=== PATIENT | male | born 1950 | race Caucasian/White ===

== ENCOUNTER 2016-12-01 22:23 | Emergency (ER) | payer MEDICARE, OTHER ==
[2016-12-01] MEDS ORDERED: SODIUM CHLORIDE 0.9% 1,000 ML IV ONE (23:25)
[2016-12-02] MEDS ORDERED: chlordiazePOXIDE 25 MG CAPSULE PO STA (01:48)
[2016-12-02] MEDS ORDERED: chlordiazePOXIDE 25 MG CAPSULE PO ONE (01:50)
== END 2016-12-02 02:37 | disposition home or self-care (01) ==
DX: J06.9 Acute upper respiratory infection, unspecified (principal); R00.0 Tachycardia, unspecified; F10.188 Alcohol abuse with other alcohol-induced disorder; T51.0X1A Toxic effect of ethanol, accidental (unintentional), initial encounter; Y92.9 Unspecified place or not applicable; G25.2 Other specified forms of tremor; I10 Essential (primary) hypertension; G47.30 Sleep apnea, unspecified; K21.9 Gastro-esophageal reflux disease without esophagitis; H91.90 Unspecified hearing loss, unspecified ear; G89.29 Other chronic pain; M54.9 Dorsalgia, unspecified; Z79.891 Long term (current) use of opiate analgesic; Z79.899 Other long term (current) drug therapy
CPT/HCPCS: 36415; 71020; 80053; 83690; 83880; 84443; 84484; 85025; 85379; 85610; 85730; 93005; 93010; 99283; 99284; A9270

== ENCOUNTER 2017-01-12 14:59 | Emergency (ER) | payer MEDICARE, OTHER ==
--- NOTE | 2017-01-12 16:01 | ED Physician Documentation ---
History of Present Illness - Stated complaint Stated Complaint: LEFT ANKLE INJ - Chief complaint Chief Complaint: Ext Problem - Additonal information Additional information: hx from pt twisted ankle walking down pavers in the yard 3 d ago was sore but walkable until today otherwise well per pt (though found to be febrile and tachy in the ER) no cough NVD abd pain urinary sx Review of Systems Musculoskeletal: reports: Pain with weight bearing PD PAST MEDICAL HISTORY - Past Medical History Past Medical History: Yes Cardiovascular: Hypertension Respiratory: Sleep apnea, CPAP use Neuro: Fainting Endocrine/Autoimmune: None GI: GERD : None HEENT: Chronic hearing loss Musculoskeletal: Chronic back pain Derm: None - Past Surgical History Past Surgical History: No Ortho: Arthroscopic surgery - Present Medications Home Medications: Ambulatory Orders Medication Instructions Recorded Confirmed Lisinopril 10 mg PO DAILY 09/01/13 01/12/17 Simvastatin [Zocor] 20 mg PO DAILY 09/01/13 01/12/17 Oxycodone HCl/Acetaminophen 10 mg PO Q6HR PRN 02/12/14 01/12/17 [Oxycodone-Acetaminophen 10-325] Pantoprazole [Protonix] 40 mg ORAL DAILY 12/16/15 01/12/17 predniSONE [Deltasone] 20 mg PO [id number] #21 tab 01/12/17 traZODone [Desyrel] 0 mg PO DAILY 01/12/17 01/12/17 - Allergies Allergies/Adverse Reactions: Allergies Allergy/AdvReac Type Severity Reaction Status Date / Time iodine Allergy Intermediate Respiratory Verified 01/12/17 15:19 indomethacin [From Indocin] Allergy Mild Edema Verified 01/12/17 15:19 indomethacin sodium * Allergy Mild Edema Verified 01/12/17 15:19 [From Indocin] - Social History Does the pt smoke?: No Smoking Status: Never smoker Does the pt drink ETOH?: Yes Does the pt have substance abuse?: No - Immunizations Immunizations are current?: Yes Immunizations: TDAP >10years/unknown - POLST Patient has POLST: No PD ED PE NORMAL - Vitals Vital signs reviewed: Yes - General General: Alert and oriented X 3 - Neck Neck: No bony TTP (no redness or swelling over prior surgery scar) - Cardiac Cardiac: RRR - Respiratory Respiratory: No respiratory distress, Clear bilaterally - Extremities Extremities: Other (TTP lateral mall and distal fibula, no medial pain, no foot pain, painful ROM, no red or warm, mild lat STS, MSV intact) Results - Vitals Vitals: Vital Signs - 24 hr 01/12/17 01/12/17 01/12/17 15:18 16:07 18:12 Temperature 38.0 C H 38.2 C H 38 C H Heart Rate 116 H 93 Respiratory 17 16 Rate Blood Pressure 134/90 H 137/76 H O2 Saturation 98 98 Oxygen O2 Source Room air - Labs Labs: Microbiology 01/12/17 16:45 Body Fluid Culture - Preliminary Synovial Fluid Laboratory Tests 01/12/17 01/12/17 01/12/17 16:45 17:03 17:03 WBC 11.7 H RBC 3.46 L Hgb 11.7 L Hct 34.9 L MCV 101.0 H MCH 33.7 H MCHC 33.4 RDW 13.6 Plt Count 175 MPV 8.2 Neut # 9.7 H Lymph # 0.8 L [place] # 1.1 H Eos # 0.0 Baso # 0.0 Absolute Nucleated RBC 0.01 Nucleated RBCs 0.1 ESR 42 H Sodium Potassium Chloride Carbon Dioxide Anion Gap BUN Creatinine Estimated GFR (MDRD) Glucose Calcium Fluid Source JOINT Fluid Color YELLOW Fluid Clarity CLOUDY Fluid WBC 94273 Fluid RBC 59802 Fluid Crystals MONOSODIUM URATE 01/12/17 17:03 WBC RBC Hgb Hct MCV MCH MCHC RDW Plt Count MPV Neut # Lymph # [place] # Eos # Baso # Absolute Nucleated RBC Nucleated RBCs ESR Sodium 137 Potassium 4.1 Chloride 102 Carbon Dioxide 25 Anion Gap 10.0 BUN 13 Creatinine 1.1 Estimated GFR (MDRD) 67 L Glucose 139 H Calcium 9.1 Fluid Source Fluid Color Fluid Clarity Fluid WBC Fluid RBC Fluid Crystals - Rads (name of study) ankle foot Radiology: See rad report (no fx) Procedures - Arthrocentesis Joint: Ankle, Left Preparation: Consent obtained, Sterile prep and drape Anesthesia: Lidocaine 1% Fluid: Sent for cell count, Cloudy, Sent for crystals, Sent for culture, Fluid obtained - cc (3), Sent for gram stain, Purulent Aftercare: Dressing applied, No complications, Other (I consented and prepped the pt and attempted but unable to obtain fluid, Dr Kim patel obtained the fluid ) PD MEDICAL DECISION MAKING - ED course ED course: pt to ER thinking he twisted his ankle but pain has been progressive over several days which is atypical for injury and in ER pt is febrile and tachy (states always has fast HR but cannot tell me his usual rate) and no other source for infection ankle minimally red and warm but sig pain with ROM so tapped with assistance of ortho synovial fluid 62346, but gram stain neg for organsisms, and fluid + gout crystals d/w Dr Kim patel who advises most likely gout and advises no ab or surgery at this time, tx for gout, wait for cx insured has three contact phine numbers for pt, advised that if the ER called him about a + culture he needed to come directly back to the ER and not eat or drink on the way, and asked pt to return to see me tomorrow for a recheck Departure - Departure Disposition: Home, Self Care Clinical Impression: Gout Qualifiers: Gout site: ankle Gout etiology: unspecified cause Laterality: left Chronicity: acute Qualified Code(s): M10.9 - Gout, unspecified Condition: Good Instructions: ED Arthritis Gout Follow-Up: Marcia Lopez DO [Primary Care Provider] - Prescriptions: predniSONE [Deltasone] 20 mg PO [id number] #21 tab Comments: The xrays were fine - no fracture The fluid form the joint indicates the pain is caused by gout. You are allergic to indocin so I have prescribed prednisone for the inflammation and you can also take your percocet Cultures are running on the ankle fluid and if any bacteria are identified we will call you to come back to the ER right away for further care. If the ER calls you about bacteria in your joint come immediately back and do not eat or drink anything because you might have to go to the operating room to wash out the joint please come back and see me tomorrow between 7AM and 3 PM for a recheck Please follow up with your PMD about your blood pressure - it was high today
[2017-01-12] MEDS ORDERED: LIDOCAINE 1% 2 ML VIAL ONE (16:28)
--- NOTE | 2017-01-12 16:47 | XRAY Preliminary Report ---
Exam: XR Ankle 3 View LT IMPRESSION: 1. Oblique lucency concerning for a nondisplaced acute fracture at the base of the left fifth metatar mark. Recommend a dedicated left foot x-ray to further evaluate. 2. Mild lateral ankle soft tissue swelling. 3. Mild degenerative changes. [facility] SITE ID: [id number]
--- NOTE | 2017-01-12 16:49 | XRAY Report ---
EXAM: LEFT ANKLE RADIOGRAPHY EXAM DATE: 01/12/2017 04:10 PM. CLINICAL HISTORY: Rolled left ankle cant walk. COMPARISON: None. TECHNIQUE: 3 views. FINDINGS: Bones: Oblique lucency concerning for a nondisplaced acute fracture at the base of the left fifth met atarsal. Recommend a dedicated left foot x-ray to further evaluate. Small chronic-appearing bone frag ments are seen distal to the medial malleolus. Bone spur off the distal talar bone at the dorsal aspect. Mild talonavicular degenerative joint disea se. Moderate posterior calcaneal bone spur. Joints: No subluxation. See above. Soft Tissues: Mild lateral ankle soft tissue swelling. IMPRESSION: 1. Oblique lucency concerning for a nondisplaced acute fracture at the base of the left fifth metatar mark. Recommend a dedicated left foot x-ray to further evaluate. 2. Mild lateral ankle soft tissue swelling. 3. Mild degenerative changes. [facility] Referring Provider Line: [phone] SITE ID: [id number]
[2017-01-12 17:14] LABS: CC,BF RBC 12567 /mm^3
[2017-01-12 17:16] LABS: BASOPHILS % (AUTO) 0.4 %; HCT - HEMATOCRIT 34.9 % (42.0-52.0); HGB - HEMOGLOBIN 11.7 g/dL (14.0-18.0); LYMPHOCYTES # (AUTO) 0.8 10^3/uL (1.5-3.5); LYMPHOCYTES % (AUTO) 6.6 %; MEAN CORPUSCULAR HEMOGLOBIN 33.7 pg (27.0-31.0); MEAN CORPUSCULAR HGB CONC 33.4 g/dL (32.0-36.0); MEAN PLATELET VOLUME 8.2 fL (7.4-11.4); MONOCYTES # (AUTO) 1.1 10^3/uL (0.0-1.0); MONOCYTES % (AUTO) 9.5 %; NEUTROPHILS # (AUTO) 9.7 10^3/uL (1.5-6.6); NEUTROPHILS % (AUTO) 83.5 %; NUCLEATED RED BLOOD CELLS AUTO 0.1 /100WBC; RED BLOOD COUNT 3.46 10^6/uL (4.70-6.10); RED CELL DISTRIBUTION WIDTH 13.6 % (12.0-15.0); UNCORRECTED WHITE BLOOD COUNT 11.7 x10^3/uL; WHITE BLOOD COUNT 11.7 x10^3/uL (4.8-10.8)
[2017-01-12 17:28] LABS: CALCIUM 9.1 mg/dL (8.5-10.3); CREATININE 1.1 mg/dL (0.6-1.2); POTASSIUM 4.1 mmol/L (3.5-5.0)
--- NOTE | 2017-01-12 17:40 | XRAY Preliminary Report ---
Exam: XR Foot 3 View LT IMPRESSION: No evidence for acute fracture. Specifically, no evidence for acute fracture at the base of the left fifth metatarsal. [facility] SITE ID: [id number]
--- NOTE | 2017-01-12 17:43 | XRAY Report ---
EXAM: LEFT FOOT RADIOGRAPHY EXAM DATE: 01/12/2017 05:13 PM. CLINICAL HISTORY: Possible base 5th fracture. COMPARISON: Left ankle 01/12/2017. TECHNIQUE: 3 views. FINDINGS: Bones: Normal. No fractures or bone lesions. Joints: Normal. No subluxations. Soft Tissues: Normal. No soft tissue swelling. Distal talus bone spur. Mild talonavicular osteophytes. Moderate posterior calcaneal bone spur. IMPRESSION: No evidence for acute fracture. Specifically, no evidence for acute fracture at the base of the left fifth metatarsal. [facility] Referring Provider Line: [phone] SITE ID: [id number]
[2017-01-12 17:59] LABS: BF CLARITY CLOUDY; BF COLOR YELLOW
[2017-01-12] MEDS: LIDOCAINE 2% 10 ML MDV SUBQ STA (18:01)
[2017-01-12 18:14] VITALS: BP 137/76
[2017-01-12] MEDS ORDERED: predniSONE 20 MG TABLET ONE (18:37)
[2017-01-12] MEDS: predniSONE 20 MG TABLET PO STA (18:41)
[2017-01-12 19:28] LABS: LYMPHOCYTES %,BODY FLUID 3; MONOCYTES %,BODY FLUID 14 %; NEUTROPHILS %, BF 83 %
== END 2017-01-12 18:55 | disposition home or self-care (01) ==
LOC: ED 14:59
DX: M10.9 Gout, unspecified (principal); I10 Essential (primary) hypertension; G47.30 Sleep apnea, unspecified; K21.9 Gastro-esophageal reflux disease without esophagitis
CPT/HCPCS: 20605; 36415; 80048; 85025; 85651; 87070; 87205; 89051; 89060; 99283; 99284

== ENCOUNTER 2017-01-13 09:38 | Emergency (ER) | payer MEDICARE, OTHER | END 2017-01-13 10:32 | disposition home or self-care (01) | DX: M10.079 Idiopathic gout, unspecified ankle and foot (principal); I10 Essential (primary) hypertension ==

== ENCOUNTER 2018-06-05 17:19 | Outpatient (CLI) | payer MEDICARE, OTHER | END 2018-06-05 17:20 | disposition critical access hospital (66) | LOC: EMS 17:19 | PROVIDERS: ATTEND Surgery | DX: R55 Syncope and collapse (principal) | CPT/HCPCS: A0425; A0427 ==

== ENCOUNTER 2018-06-05 17:36 | Emergency (ER) | payer MEDICARE, OTHER ==
--- NOTE | 2018-06-05 17:50 | ED Physician Documentation ---
PD HPI SYNCOPE - Stated complaint Stated Complaint: SYNCOPE - Chief complaint Chief Complaint: Neuro - History obtained from History obtained from: Patient, EMS - History of Present Illness Witnessed: Unwitnessed (67-year-old gentleman who denies using alcohol the day although seems pretty obviously intoxicated on exam presents after an apparent syncopal episode. Reportedly he was out walking his dog and then was found crumpled down in the grass by some neighbors and EMS was summoned. He does not recollect any of this. He denies injury.) Review of Systems Unable to obtain: Intoxicated PD PAST MEDICAL HISTORY - Past Medical History Cardiovascular: Hypertension Respiratory: Sleep apnea, CPAP use Endocrine/Autoimmune: None GI: GERD : None HEENT: Chronic hearing loss Musculoskeletal: Chronic back pain Derm: None - Past Surgical History Past Surgical History: No Ortho: Arthroscopic surgery - Present Medications Home Medications: Ambulatory Orders Medication Instructions Recorded Confirmed Lisinopril 10 mg PO DAILY 09/01/13 01/13/17 Simvastatin [Zocor] 20 mg PO DAILY 09/01/13 01/13/17 Oxycodone HCl/Acetaminophen 10 mg PO Q6HR PRN 02/12/14 01/13/17 [Oxycodone-Acetaminophen 10-325] Pantoprazole [Protonix] 40 mg ORAL DAILY 12/16/15 01/13/17 predniSONE [Deltasone] 20 mg PO [id number] #21 tab 01/12/17 01/13/17 traZODone [Desyrel] 0 mg PO DAILY 01/12/17 01/13/17 - Allergies Allergies/Adverse Reactions: Allergies Allergy/AdvReac Type Severity Reaction Status Date / Time iodine Allergy Intermediate Respiratory Verified 01/13/17 09:46 indomethacin [From Indocin] Allergy Mild Edema Verified 01/13/17 09:46 indomethacin sodium * Allergy Mild Edema Verified 01/13/17 09:46 [From Indocin] - Social History Does the pt smoke?: No Smoking Status: Never smoker Does the pt drink ETOH?: Yes Does the pt have substance abuse?: No - Immunizations Immunizations are current?: Yes Immunizations: TDAP >10years/unknown - POLST Patient has POLST: No PD ED PE NORMAL - Vitals Vital signs reviewed: Yes - General General: Alert and oriented X 3, Other (Slow slurred speech) - HEENT HEENT: PERRL (With horizontal nystagmus) - Neck Neck: Supple, no meningeal sign, No bony TTP - Cardiac Cardiac: RRR, No murmur - Respiratory Respiratory: No respiratory distress, Clear bilaterally - Abdomen Abdomen: Normal bowel sounds, Soft, Non tender - Back Back: No CVA TTP, No spinal TTP - Derm Derm: Normal color, Warm and dry - Extremities Extremities: No edema, No calf tenderness / cord - Neuro Neuro: Alert and oriented X 3, Normal speech Eye Opening: Spontaneous Motor: Obeys Commands Verbal: Oriented GCS Score: 15 - Psych Psych: Normal mood, Normal affect Results - Vitals Vitals: Vital Signs - 24 hr 06/05/18 06/05/18 06/05/18 17:39 18:29 18:31 Temperature 36.6 C Heart Rate 106 H 95 Respiratory 16 14 12 Rate Blood Pressure 158/133 H 83/45 L O2 Saturation 93 88 L 98 06/05/18 06/05/18 18:54 20:02 Temperature Heart Rate 93 90 Respiratory 12 14 Rate Blood Pressure 92/52 L 86/45 L O2 Saturation 97 93 Oxygen O2 Source Room air - EKG (time done) 1814 Rate: Rate (enter#) (96) Rhythm: NSR [place]: Normal Intervals: Normal [place] QRS: Normal Ischemia: Q waves (inferior) Computer interpretation: Agree with computer - Labs Labs: Laboratory Tests 06/05/18 06/05/18 17:56 17:56 WBC 5.5 RBC 3.03 L Hgb 11.2 L Hct 32.2 L MCV 106.3 H MCH 37.2 H MCHC 35.0 RDW 15.9 H Plt Count 91 L MPV 7.8 Neut # (Auto) 2.6 Lymph # (Auto) 2.3 [place] # (Auto) 0.4 Eos # (Auto) 0.1 Baso # (Auto) 0.1 Absolute Nucleated RBC 0.00 Nucleated RBC % 0.0 Sodium 135 Potassium 4.2 Chloride 97 L Carbon Dioxide 21 Anion Gap 17.0 H BUN 18 Creatinine 1.3 H Estimated GFR (MDRD) 55 L Glucose 73 Calcium 8.2 L Total Bilirubin 0.6 AST 34 ALT 15 Alkaline Phosphatase 56 Total Protein 6.5 L Albumin 3.8 Globulin 2.7 Albumin/Globulin Ratio 1.4 Lipase 29 Ethyl Alcohol 340.4 - Rads (name of study) CT Head and Cspine Radiology: EMP read contemporaneously (NAD) PD MEDICAL DECISION MAKING - ED course ED course: On arrival he was obviously intoxicated corroborated by his blood alcohol 340. Even after being confronted with this he denied drinking today. Regardless this explains his syncopal episode. The was not surprised. He was observed for a couple of hours until he was clinically sober and ambulating without difficulty or assistance. - Sepsis Event Vital Signs: Vital Signs - 24 hr 06/05/18 06/05/18 06/05/18 17:39 18:29 18:31 Temperature 36.6 C Heart Rate 106 H 95 Respiratory 16 14 12 Rate Blood Pressure 158/133 H 83/45 L O2 Saturation 93 88 L 98 06/05/18 06/05/18 18:54 20:02 Temperature Heart Rate 93 90 Respiratory 12 14 Rate Blood Pressure 92/52 L 86/45 L O2 Saturation 97 93 Oxygen O2 Source Room air Departure - Departure Disposition: 01 Home, Self Care Clinical Impression: Fall from slip, trip, or stumble Qualifiers: Encounter type: initial encounter Qualified Code(s): W01.0XXA - Fall on same level from slipping, tripping and stumbling without subsequent striking against object, initial encounter Syncope Qualifiers: Syncope type: unspecified Qualified Code(s): R55 - Syncope and collapse Alcohol intoxication Qualifiers: Complication of substance-induced condition: uncomplicated Qualified Code(s): F10.920 - Alcohol use, unspecified with intoxication, uncomplicated Condition: Good Record reviewed to determine appropriate education?: Yes Instructions: ED Alcohol Intoxication Comments: Your blood pressure was elevated today on check into the emergency department. This does not mean that you have hypertension, it is a common phenomenon to come to the emergency department and have elevated blood pressure. I recommend that you see your primary care physician within the week to have it rechecked when you are feeling better.
[2018-06-05 18:01] LABS: BASOPHILS # (AUTO) 0.1 10^3/uL (0.0-0.1); EOSINOPHILS # (AUTO) 0.1 10^3/uL (0.0-0.7); EOSINOPHILS % (AUTO) 2.2 %; HGB - HEMOGLOBIN 11.2 g/dL (14.0-18.0); LYMPHOCYTES # (AUTO) 2.3 10^3/uL (1.5-3.5); LYMPHOCYTES % (AUTO) 42.4 %; MEAN CORPUSCULAR HEMOGLOBIN 37.2 pg (27.0-31.0); MEAN CORPUSCULAR VOLUME 106.3 fL (80.0-94.0); MEAN PLATELET VOLUME 7.8 fL (7.4-11.4); MONOCYTES # (AUTO) 0.4 10^3/uL (0.0-1.0); MONOCYTES % (AUTO) 7.1 %; NEUTROPHILS # (AUTO) 2.6 10^3/uL (1.5-6.6); NEUTROPHILS % (AUTO) 47.3 %; PLT - PLATELET COUNT 91 10^3/uL (130-450); RED BLOOD COUNT 3.03 10^6/uL (4.70-6.10); RED CELL DISTRIBUTION WIDTH 15.9 % (12.0-15.0); WHITE BLOOD COUNT 5.5 x10^3/uL (4.8-10.8)
[2018-06-05 18:19] LABS: ALBUMIN 3.8 g/dL (3.2-5.5); ALBUMIN/GLOBULIN RATIO 1.4 (1.0-2.2); BILIRUBIN,TOTAL 0.6 mg/dL (0.2-1.0); CALCIUM 8.2 mg/dL (8.5-10.3); CREATININE 1.3 mg/dL (0.6-1.2); TOTAL PROTEIN 6.5 g/dL (6.7-8.2)
--- NOTE | 2018-06-05 18:33 | CT Report ---
Reason: syncope, etoh Procedure Date: 06/05/2018 Accession Number: [id number] / [id number] Procedure: CT - Head W/O CPT Code: FULL RESULT: EXAM: CT HEAD EXAM DATE: 06/05/2018 06:12 PM. CLINICAL HISTORY: Syncope, etoh. COMPARISON: HEAD W/O 07/19/2016. TECHNIQUE: Multiaxial CT images were obtained from the foramen magnum to the vertex. Reformats: Sagittal and coronal. IV contrast: None. In accordance with CT protocol optimization, one or more of the following dose reduction techniques were utilized for this exam: automated exposure control, adjustment of mA and/or KV based on patient size, or use of iterative reconstructive technique. FINDINGS: Parenchyma: Mild periventricular low density white matter changes. No evidence of evolving infarction or hemorrhage. Extraaxial Spaces: Normal for age. No subdural or epidural collections identified. Ventricles: Normal in size and position. Sinuses and Orbits: Imaged paranasal sinuses, orbits, and mastoids show no significant abnormality. Bones: No evidence of fracture or calvarial defect. Other: None. IMPRESSION: No acute intracranial abnormality. [facility]
--- NOTE | 2018-06-05 18:37 | CT Report ---
Reason: syncope, etoh Procedure Date: 06/05/2018 Accession Number: [id number] / [id number] Procedure: CT - Cervical Spine W/O CPT Code: FULL RESULT: EXAM: CT CERVICAL SPINE WITHOUT CONTRAST DATE: 06/05/2018 06:12 PM. HISTORY: Syncope, etoh. COMPARISONS: CERVICAL SPINE W/O 07/19/2016. TECHNIQUE: Thin-section axial images were acquired of the cervical spine without contrast. Post-processing: Coronal and sagittal reformats. Other: None. In accordance with CT protocol optimization, one or more of the following dose reduction techniques were utilized for this exam: automated exposure control, adjustment of mA and/or KV based on patient size, or use of iterative reconstructive technique. FINDINGS: Alignment: No scoliosis or spondylolisthesis. Bones: No acute fracture. Status post C3-C7 bilateral pedicle rocío and screw fusion with laminectomy defects at C3-C6. Interspace Levels/Facets: Moderate diskogenic degenerative changes at C4-C5 C5-C6 and C6-C7. Musculature: Normal. No fatty atrophy. Other: The paravertebral and prevertebral soft tissues are unremarkable. The lung apices are clear. IMPRESSION: 1. No cervical spine fracture or malalignment. 2. Status post C3-C7 posterior fusion and laminectomies. [facility]
[2018-06-05 20:13] VITALS: BP 104/41
== END 2018-06-05 20:21 | disposition home or self-care (01) ==
LOC: EDUNIT# → ED 17:36
DX: R55 Syncope and collapse (principal); F10.920 Alcohol use, unspecified with intoxication, uncomplicated; Y90.8 Blood alcohol level of 240 mg/100 ml or more; R94.31 Abnormal electrocardiogram [ECG] [EKG]; I10 Essential (primary) hypertension
CPT/HCPCS: 36415; 70450; 72125; 80053; 80320; 83690; 85025; 93005; 99283; 99284

== ENCOUNTER 2018-12-08 16:47 | Outpatient (CLI) | payer SELFPAY | END 2018-12-08 16:48 | disposition EMS.NT | LOC: EMS 16:47 | PROVIDERS: ATTEND Surgery | DX: S09.90XA Unspecified injury of head, initial encounter (principal); R42 Dizziness and giddiness; R51 Headache; V48.4XXA Person boarding or alighting a car injured in noncollision transport accident, initial encounter; Y92.008 Other place in unspecified non-institutional (private) residence as the place of occurrence of the external cause ==

== ENCOUNTER 2018-12-11 09:42 | Emergency (ER) | payer MEDICARE, OTHER ==
--- NOTE | 2018-12-11 10:29 | ED Physician Documentation ---
PD HPI Fall - Stated complaint Stated Complaint: HEAD INJ/ELBOW INJ-GLF - Chief complaint Chief Complaint: Neuro - History obtained from History obtained from: Patient, Family () - History of Present Illness Mechanism of injury: Other ("dizziness") Fall distance: Standing position Where injury occurred: Street Timing - onset: How many days ago (2) Injury(ies) location: Head (occipital), Right Upper Extremity (elbow) Recently seen: Clinic - Additional information Additional information: The patient is a 68-year-old male who fell 2 days ago impacting his occipital scalp directly on concrete. He had been feeling dizzy prior to falling. There was no loss of consciousness, and he refused transport to the hospital when medics evaluated him at that time. He was seen by his primary physician this morning, and was advised to come to the emergency department because of persistent pain in the occipital scalp. He also reports discomfort in the extensor aspect of his right elbow, and he was complaining of pain in his left ankle last night, but denies such pain this morning. He denies nausea or vomiting. His past medical history is significant for cervical fusion, and he is treated for chronic neck and back pain with Percocet. He thinks the reason for his dizziness on the morning of the fall was that he had taken a full tablet of his high blood pressure medicine, when he normally takes 1/2 tablet. Review of Systems Constitutional: denies: Fever, Fatigue Eyes: denies: Decreased vision Ears: denies: Tinnitus/ringing Nose: denies: Congestion Throat: denies: Sore throat Cardiac: denies: Chest pain / pressure, Palpitations Respiratory: denies: Dyspnea, Cough GI: denies: Abdominal Pain, Nausea, Vomiting : denies: Dysuria Skin: reports: Abrasion (s) (Occipital scalp). denies: Rash Musculoskeletal: reports: Neck pain (chronically), Extremity pain (right elbow). denies: Extremity swelling Neurologic: reports: Headache (occipital). denies: Focal weakness, Numbness PD PAST MEDICAL HISTORY - Past Medical History Past Medical History: Yes Cardiovascular: Hypertension Respiratory: Sleep apnea, CPAP use Endocrine/Autoimmune: None GI: GERD : None HEENT: Chronic hearing loss Musculoskeletal: Chronic back pain Derm: None - Past Surgical History Past Surgical History: No Ortho: Arthroscopic surgery - Present Medications Home Medications: Ambulatory Orders Medication Instructions Recorded Confirmed Lisinopril 10 mg PO DAILY 12/03/13 04/16/17 Simvastatin [Zocor] 20 mg PO DAILY 09/01/13 01/13/17 Oxycodone HCl/Acetaminophen 10 mg PO Q6HR PRN 02/12/14 01/13/17 [Oxycodone-Acetaminophen 10-325] Pantoprazole [Protonix] 40 mg ORAL DAILY 12/16/15 01/13/17 predniSONE [Deltasone] 20 mg PO [id number] #21 tab 01/12/17 01/13/17 traZODone [Desyrel] 0 mg PO DAILY 01/12/17 01/13/17 - Allergies Allergies/Adverse Reactions: Allergies Allergy/AdvReac Type Severity Reaction Status Date / Time iodine Allergy Intermediate Respiratory Verified 12/11/18 10:07 indomethacin [From Indocin] Allergy Mild Edema Verified 12/11/18 10:07 indomethacin sodium * Allergy Mild Edema Verified 12/11/18 10:07 [From Indocin] - Social History Does the pt smoke?: No Smoking Status: Never smoker Does the pt drink ETOH?: Yes Does the pt have substance abuse?: No - Immunizations Immunizations are current?: Yes Immunizations: TDAP >10years/unknown - POLST Patient has POLST: No PD ED PE NORMAL - Vitals Vital signs reviewed: Yes (tachycardic) - General General: Alert and oriented X 3, Well developed/nourished, Other (Appears to have stigmata of chronic alcohol use.) - HEENT HEENT: PERRL, EOMI, Pharynx benign, Other (Abrasion of the occipital scalp, with associated tenderness to palpation. There is no bony step-off palpated. No hematoma detected.) - Neck Neck: Supple, no meningeal sign, No bony TTP, No adenopathy, No JVD, Other (Decreased cervical range of motion, consistent with cervical fusion.) - Cardiac Cardiac: No murmur, Other (Slightly rapid rate, regular rhythm.) - Respiratory Respiratory: No respiratory distress, Clear bilaterally - Abdomen Abdomen: Soft, Non tender - Back Back: No CVA TTP, No spinal TTP - Derm Derm: Other (Superficial scratches on the right forearm.) - Extremities Extremities: No edema, No calf tenderness / cord, Other (Tenderness to palpation over the occipital region of the right elbow. There is no bony tenderness, no swelling, and he has full range of motion including supination and pronation, without discomfort.) - Neuro Neuro: Alert and oriented X 3, No motor deficit, No sensory deficit, Normal speech Results - Vitals Vitals: Vital Signs - 24 hr 12/11/18 12/11/18 10:02 11:24 Temperature 36.4 C L Heart Rate 122 H 99 Respiratory 16 16 Rate Blood Pressure 125/78 131/85 H O2 Saturation 98 97 Oxygen O2 Source Room air - Rads (name of study) Head CT Radiology: Prelim report reviewed, EMP read contemporaneously, See rad report (Normal head CT. No intracranial hemorrhage, mass-effect or other acute abnormality.) PD MEDICAL DECISION MAKING - ED course Complexity details: reviewed results, re-evaluated patient, considered differ ential, d/w patient, d/w family ED course: The patient's presentation is significant for occipital scalp contusion secondary to falling [address] reveals no evidence of skull fracture or intracranial abnormality. He demonstrated ability to ambulate in the emergency department, but has a slightly unsteady gait, consistent with chronic alcoholism. I discussed with him and his the effects of alcoholism on his sense of balance, and they accepted information regarding outpatient treatment sources that are available for alcoholism on [facility]. Departure - Departure Disposition: 01 Home, Self Care Clinical Impression: Scalp contusion Qualifiers: Encounter type: initial encounter Qualified Code(s): S00.03XA - Contusion of scalp, initial encounter Contusion of right elbow Qualifiers: Encounter type: initial encounter Qualified Code(s): S50.01XA - Contusion of right elbow, initial encounter Fall Qualifiers: Encounter type: initial encounter Qualified Code(s): W19.XXXA - Unspecified fall, initial encounter Condition: Stable Instructions: ED Contusion Scalp Follow-Up: MAHENDRA MARTIN [Primary Care Provider] - Comments: Your head CT was normal today. It will probably take several days for your scalp wound to heal. Consider treatment for alcohol addiction. Follow-up with your primary physician. Call to schedule an appointment. Return to the emergency department if you develop increasing headache, persistent vomiting, or otherwise worsening symptoms. Discharge Date/Time: 12/11/18 11:51
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
[2018-12-11 11:25] VITALS: BP 131/85
== END 2018-12-11 11:51 | disposition home or self-care (01) ==
LOC: ED 09:42
DX: S00.03XA Contusion of scalp, initial encounter (principal); S50.01XA Contusion of right elbow, initial encounter; W18.39XA Other fall on same level, initial encounter; Y92.410 Unspecified street and highway as the place of occurrence of the external cause; I10 Essential (primary) hypertension
CPT/HCPCS: 70450; 99283

== ENCOUNTER 2019-07-23 11:51 | Emergency (ER) | payer MEDICARE, OTHER ==
[2019-07-23] MEDS ORDERED: HYDROmorphone 1 MG/ML CARPUJECT IVP STA ×2 (12:42→13:43)
[2019-07-23] MEDS ORDERED: DEXAMETHASONE 10 MG/ML VIAL IV STA (12:42)
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
[2019-07-23 13:06] LABS: BASOPHILS # (AUTO) 0.1 10^3/uL (0.0-0.1); BASOPHILS % (AUTO) 0.5 %; EOSINOPHILS # (AUTO) 0.1 10^3/uL (0.0-0.7); EOSINOPHILS % (AUTO) 0.6 %; HGB - HEMOGLOBIN 10.6 g/dL (14.0-18.0); LYMPHOCYTES # (AUTO) 1.1 10^3/uL (1.5-3.5); MEAN CORPUSCULAR HEMOGLOBIN 32.4 pg (27.0-31.0); MEAN CORPUSCULAR VOLUME 101.2 fL (80.0-94.0); MEAN PLATELET VOLUME 9.5 fL (7.4-11.4); MONOCYTES # (AUTO) 0.9 10^3/uL (0.0-1.0); MONOCYTES % (AUTO) 9.3 %; NEUTROPHILS # (AUTO) 7.6 10^3/uL (1.5-6.6); PLT - PLATELET COUNT 337 10^3/uL (130-450); RED BLOOD COUNT 3.27 10^6/uL (4.70-6.10); RED CELL DISTRIBUTION WIDTH 12.4 % (12.0-15.0); WHITE BLOOD COUNT 9.8 x10^3/uL (4.8-10.8)
[2019-07-23 13:36] LABS: CALCIUM 9.3 mg/dL (8.5-10.3); CREATININE 1.1 mg/dL (0.6-1.2); CRP - C-REACTIVE PROTEIN 22.4 mg/dL (0-1.0)
[2019-07-23] MEDS ORDERED: KETOROLAC 30 MG/ML VIAL IVP STA (13:43)
[2019-07-23] MEDS ORDERED: COLCHICINE 0.6 MG TABLET PO STA (13:44)
[2019-07-23 14:30] VITALS: BP 105/75
== END 2019-07-23 15:36 | disposition home or self-care (01) ==
LOC: ED 11:51
DX: L40.50 Arthropathic psoriasis, unspecified (principal); M10.09 Idiopathic gout, multiple sites; I10 Essential (primary) hypertension
CPT/HCPCS: 36415; 80048; 84550; 85025; 85651; 86140; 96374; 96375; 96376; 99283; A9270; J1170

== ENCOUNTER 2019-10-11 17:24 | Outpatient (CLI) | payer OTHER, MEDICARE | END 2019-10-11 17:25 | disposition critical access hospital (66) | LOC: EMS 17:24 | PROVIDERS: ATTEND Surgery | DX: R41.82 Altered mental status, unspecified (principal); V47.5XXA Car driver injured in collision with fixed or stationary object in traffic accident, initial encounter; Y92.414 Local residential or business street as the place of occurrence of the external cause | CPT/HCPCS: A0425; A0429 ==

== ENCOUNTER 2019-10-11 17:38 | Emergency (ER) | payer OTHER, MEDICARE ==
[2019-10-11] MEDS ORDERED: SODIUM CHLORIDE 0.9% 1,000 ML IV ONE (17:54)
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
[2019-10-11 18:09] LABS: BASOPHILS # (AUTO) 0.1 10^3/uL (0.0-0.1); BASOPHILS % (AUTO) 0.8 %; EOSINOPHILS # (AUTO) 0.1 10^3/uL (0.0-0.7); EOSINOPHILS % (AUTO) 1.8 %; HGB - HEMOGLOBIN 13.7 g/dL (14.0-18.0); LYMPHOCYTES # (AUTO) 3.3 10^3/uL (1.5-3.5); LYMPHOCYTES % (AUTO) 41.7 %; MEAN CORPUSCULAR HGB CONC 33.9 g/dL (32.0-36.0); MEAN CORPUSCULAR VOLUME 97.3 fL (80.0-94.0); MEAN PLATELET VOLUME 9.3 fL (7.4-11.4); MONOCYTES % (AUTO) 12.1 %; NEUTROPHILS # (AUTO) 3.4 10^3/uL (1.5-6.6); NEUTROPHILS % (AUTO) 43.2 %; PLT - PLATELET COUNT 149 10^3/uL (130-450); RED BLOOD COUNT 4.15 10^6/uL (4.70-6.10); RED CELL DISTRIBUTION WIDTH 14.1 % (12.0-15.0); WHITE BLOOD COUNT 7.8 x10^3/uL (4.8-10.8)
[2019-10-11] MEDS ORDERED: HALOPERIDOL 5 MG/ML VIAL IVP ONE ×2 (18:09→19:05)
[2019-10-11 18:27] LABS: MUDS CUTOFF CONCENTRATIONS CUTOFF CONC BELOW:
[2019-10-11 18:29] LABS: BILIRUBIN,URINE NEGATIVE (NEGATIVE); GLUCOSE, URINE (UA) NEGATIVE (NEGATIVE); KETONES,URINE (UA) NEGATIVE (NEGATIVE); LEUKOCYTE ESTERASE, URINE NEGATIVE (NEGATIVE); NITRITE,URINE NEGATIVE (NEGATIVE); OCCULT BLOOD,URINE NEGATIVE (NEGATIVE); PROTEIN,URINE NEGATIVE (NEGATIVE); UROBILINOGEN,URINE 0.2 (NORMAL) E.U./dL (NORMAL)
[2019-10-11 18:39] LABS: CLARITY,URINE CLEAR (CLEAR)
[2019-10-11 18:40] LABS: AMPHETAMINE SCREEN,URINE NEGATIVE (NEGATIVE); BENZODIAZEPINES SCREEN, URINE NEGATIVE (NEGATIVE); COCAINE SCREEN URINE NEGATIVE (NEGATIVE); METHADONE SCREEN, URINE NEGATIVE (NEGATIVE); METHAMPHETAMINES SCREEN, URINE NEGATIVE (NEGATIVE); OPIATE SCREEN, URINE NEGATIVE (NEGATIVE); OXYCODONE SCREEN, URINE POSITIVE (NEGATIVE); PROPOXYPHENE SCREEN, URINE NEGATIVE (NEGATIVE); TRICYCLIC ANTIDEPRESSANT,URINE NEGATIVE (NEGATIVE)
[2019-10-11 19:11] LABS: ALBUMIN 3.8 g/dL (3.2-5.5); ALBUMIN/GLOBULIN RATIO 1.3 (1.0-2.2); ALKALINE PHOSPHATASE 42 IU/L (42-121); ALT ALANINE AMINOTRANSFERASE 16 IU/L (10-60); AST ASPARTATE AMINOTRANSFERASE 26 IU/L (10-42); BILIRUBIN,TOTAL 0.6 mg/dL (0.2-1.0); BUN - BLOOD UREA NITROGEN 17 mg/dL (6-20); CALCIUM 8.6 mg/dL (8.5-10.3); CARBON DIOXIDE - CO2 23 mmol/L (21-32); CHLORIDE 103 mmol/L (101-111); GFR - MDRD 74 (>89); GLUCOSE 99 mg/dL (70-100); LIPASE 28 U/L (22-51); SODIUM 139 mmol/L (135-145); TOTAL PROTEIN 6.7 g/dL (6.7-8.2)
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
[2019-10-11 19:31] LABS: ACETAMINOPHEN < 10 ug/mL (10-30); SALICYLATE < 6.0 mg/dL
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
[2019-10-11 20:13] VITALS: BP 134/94
== END 2019-10-11 20:27 | disposition home or self-care (01) ==
LOC: EDUNIT# → EDBD → ED 17:38
DX: F10.929 Alcohol use, unspecified with intoxication, unspecified (principal); Y90.8 Blood alcohol level of 240 mg/100 ml or more; M54.2 Cervicalgia; R51 Headache; V43.02XA Car driver injured in collision with other type car in nontraffic accident, initial encounter; Z78.1 Physical restraint status; I10 Essential (primary) hypertension; Z98.1 Arthrodesis status
CPT/HCPCS: 36415; 70450; 71045; 72125; 80053; 80306; 80307; 80320; 80329; 81001; 81003; 83690; 85025; 87086; 96361; 96374; 96376; 99285

== ENCOUNTER 2019-10-20 13:44 | Outpatient (CLI) | payer MEDICARE, OTHER | END 2019-10-20 13:45 | disposition critical access hospital (66) | LOC: EMS 13:44 | PROVIDERS: ATTEND Surgery | DX: R47.81 Slurred speech (principal); Z72.89 Other problems related to lifestyle | CPT/HCPCS: A0425; A0429 ==

== ENCOUNTER 2019-10-20 14:09 | Emergency (ER) | payer MEDICARE, OTHER ==
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
[2019-10-20 16:17] VITALS: BP 119/70
== END 2019-10-20 16:30 | disposition home or self-care (01) ==
LOC: EDUNIT# → ED 14:09
DX: F10.921 Alcohol use, unspecified with intoxication delirium (principal); I10 Essential (primary) hypertension
CPT/HCPCS: 99281; 99283